=== PATIENT | male | born 1985 | race Caucasian/White ===

== ENCOUNTER 2017-01-29 17:05 | Emergency (ER) | payer OTHER ==
[2017-01-29 18:39] LABS: CHLORIDE,CL 106 mmol/L (98-110); SODIUM,NA 141 mmol/L (136-146)
--- NOTE | 2017-01-29 18:48 | EDM.PDOC ---
ED HPI GENERAL MEDICAL PROBLEM - General Chief Complaint: General Stated Complaint: PT HAS BLOOD IN STOOL Time Seen by Provider: 01/29/17 17:40 Source of Information: Reports: Patient History Limitations: Reports: No Limitations - History of Present Illness INITIAL COMMENTS - FREE TEXT/NARRATIVE: HISTORY AND PHYSICAL: History of present illness: [Patient comes to the emergency room complaining of one episode of rectal bleeding today. He also experienced an episode on January 25. Noticed blood in the stool after having a bowel movement. Has had no abdominal pain, nausea vomiting or diarrhea. He's been a little more constipated than usual as he was recently cut out carbohydrates out of his diet. No fever or chills. He has no other complaints or concerns. He has no history of rectal bleeding, cancers, any chronic medical conditions. Does not take any medications regularly and does not have any medication allergies.] Review of systems: As per history of present illness and below otherwise all systems reviewed and negative. Past medical history: As per history of present illness and as reviewed below otherwise noncontributory. Surgical history: As per history of present illness and as reviewed below otherwise noncontributory. Social history: No reported history of drug or alcohol abuse. Family history: As per history of present illness and as reviewed below otherwise noncontributory. Physical exam: HEENT: Atraumatic, normocephalic. Oral mucous membranes are pink and moist. No tonsillar swelling erythema or exudate. Neck supple no lymphadenopathy. Lungs: Clear to auscultation, breath sounds equal bilaterally. Heart: S1S2, regular rate and rhythm. Abdomen: Soft, nondistended, nontender. Negative for masses guarding and rebound. No CVA tenderness. Genitourinary: Deferred. Rectal: Normal sphincter tone on [place]. No hemorrhoids or abnormalities appreciated to anal area. Stool for occult blood is negative. Extremities: Atraumatic, ambulates without difficulty. Neurovascular unremarkable. Neuro: Awake, alert, oriented. Motor and sensory unremarkable throughout. Exam nonfocal. Diagnostics: [CBC, CMP] Impression: [rectal bleeding] Plan: [Discussed with patient that the results of his rectal exam are completely WNL. We discussed that hard stools can lead to microscopic tears in the rectal tissue that can cause some bleeding, as well as internal hemorrhoids. Discussed that a low carbohydrate diet may increase constipation and that he needs to increase water intake and take a stool softener daily. He is to follow-up with his PCP. All of his questions are answered and concerns are addressed. He is in agreement with today's plan and discussion.] Definitive disposition and diagnosis as appropriate pending reevaluation and review of above. Abdomen Pain Score (Numeric/FACES): 2 - Related Data Allergies Allergy/AdvReac Type Severity Reaction Status Date / Time No Known Allergies Allergy Verified 01/29/17 17:29 Home Meds: Home Meds . [No Known Home Meds] 01/29/17 [History] Past Medical History - Past Health History Medical/Surgical History: Denies Medical/Surgical History Social & Family History - Family History Family Medical History: Noncontributory - Tobacco Use Smoking Status *Q: Never Smoker - Caffeine Use Caffeine Use: Reports: Tea - Recreational Drug Use Recreational Drug Use: No ED ROS GENERAL - Review of Systems Review Of Systems: ROS reveals no pertinent complaints other than HPI. ED EXAM, GENERAL - Physical Exam Exam: See Below Course - Vital Signs Last Recorded V/S: Last Vital Signs Temp 98.6 F 01/29/17 17:29 Pulse 80 01/29/17 17:29 Resp 16 01/29/17 17:29 BP 137/87 01/29/17 17:29 Pulse Ox 95 01/29/17 17:29 - Orders/Labs/Meds Labs: Laboratory Tests 01/29/17 01/29/17 Range/Units 17:56 17:56 WBC 5.92 (4.0-11.0) K/uL RBC 5.34 (4.50-5.90) M/uL Hgb 16.2 (13.0-17.0) g/dL Hct 46.0 (38.0-50.0) % MCV 86.1 (80.0-98.0) fL MCH 30.3 (27.0-32.0) pg MCHC 35.2 (31.0-37.0) g/dL RDW Std Deviation 40.0 (28.0-62.0) fl RDW Coeff of Stephanie 13 (11.0-15.0) % Plt Count 160 (150-400) K/uL MPV 11.20 (7.40-12.00) fL Neut % (Auto) 54.0 (48.0-80.0) % Lymph % (Auto) 32.3 (16.0-40.0) % Rogers % (Auto) 8.1 (0.0-15.0) % Eos % (Auto) 5.1 (0.0-7.0) % Baso % (Auto) 0.5 (0.0-1.5) % Neut # (Auto) 3.2 (1.4-5.7) K/uL Lymph # (Auto) 1.9 (0.6-2.4) K/uL Rogers # (Auto) 0.5 (0.0-0.8) K/uL Eos # (Auto) 0.3 (0.0-0.7) K/uL Baso # (Auto) 0.0 (0.0-0.1) K/uL Nucleated RBC % 0.0 /100WBC Nucleated RBCs # 0 K/uL Sodium 141 (136-146) mmol/L Potassium 3.9 (3.5-5.1) mmol/L Chloride 106 (98-110) mmol/L Carbon Dioxide 24 (21-31) mmol/L BUN 22 (6.0-23.0) mg/dL Creatinine 1.1 (0.6-1.5) mg/dL Est Cr Clr Drug Dosing 89.30 mL/min Estimated GFR (MDRD) > 60.0 ml/min Glucose 97 (60-110) mg/dL Calcium 10.0 (8.8-10.8) mg/dL Total Bilirubin 0.4 (0.1-1.5) mg/dL AST 22 (5-40) IU/L ALT 35 (8-54) IU/L Alkaline Phosphatase 106 (40-150) Total Protein 8.4 H (6.0-8.0) g/dL Albumin 4.7 (3.5-5.0) g/dL Globulin 3.7 H (2.0-3.5) g/dL Albumin/Globulin Ratio 1.3 (1.3-2.8) Departure - Departure Time of Disposition: 18:47 Disposition: Home, Self-Care 01 Condition: Good Clinical Impression: Rectal bleeding - Discharge Information Referrals: PCP,None [Primary Care Provider] - Forms: ED Department Discharge Additional Instructions: The following information is given to patients seen in the emergency department who are being discharged to home. This information is to outline your options for follow-up care. We provide all patients seen in our emergency department with a follow-up referral. The need for follow-up, as well as the timing and circumstances, are variable depending upon the specifics of your emergency department visit. If you don't have a primary care physician on staff, we will provide you with a referral. We always advise you to contact your personal physician following an emergency department visit to inform them of the circumstance of the visit and for follow-up with them and/or the need for any referrals to a consulting specialist. The emergency department will also refer you to a specialist when appropriate. This referral assures that you have the opportunity for follow-up care with a specialist. All of these measure are taken in an effort to provide you with optimal care, which includes your follow-up. Under all circumstances we always encourage you to contact your private physician who remains a resource for coordinating your care. When calling for follow-up care, please make the office aware that this follow-up is from your recent emergency room visit. If for any reason you are refused follow-up, please contact the [facility] emergency department at and asked to speak to the emergency department charge nurse. [facility] [address] [place] [id number] Follow-up with your primary care provider at the clinic listed above in 3-4 days. Increase water intake, take stool softener daily. Return to ER as needed as discussed.
== END 2017-01-29 19:01 | disposition home or self-care (01) ==
LOC: MW.ED 17:05
DX: K62.5 Hemorrhage of anus and rectum (principal)
CPT/HCPCS: 36415; 80053; 85025; 99282; 99283